=== PATIENT | female | born 1945 | race Caucasian/White ===

== ENCOUNTER → 2019-06-16 11:28 | Outpatient (BNVA) | payer MEDICARE, SELFPAY | PROVIDERS: Visit Provider Nurse Practitioner Family | DX: I10 Essential (primary) hypertension (principal); E11.59 Type 2 diabetes mellitus with other circulatory complications; E78.5 Hyperlipidemia, unspecified | CPT/HCPCS: 80053; 82044; 83036 ==

== ENCOUNTER 2019-06-23 17:35 | Inpatient (IN) | payer MEDICARE, SELFPAY ==
[2019-06-23] VITALS (9 sets, daily range): BP systolic 90–130; BP diastolic 60–73; PULSE 91–121; RESP 16–18; TEMP 36.7–37; O2SAT 91–94; BMI 17.9
--- NOTE | 2019-06-23 17:44 | W.ED.NAVMDI ---
Documented by User: Donavan Palmer DO 06/28/19 10:37 HPI - Nausea/Vomiting/Diarrhea General: Chief complaint: Nausea/Vomiting/Diarrhea Stated complaint: N/V, fever, low O2 Time Seen by Provider: 06/23/19 17:40 History of Present Illness: HPI Narrative: 74-year-old female presents emergency room with complaints of nausea vomiting diarrhea. Denies hematochezia melena hematemesis or coffee-ground emesis. No fevers. She has had a little bit of cough which has been nonproductive. She has a history of COPD does not use oxygen she has moderately low O2 sat in the 90 to 91% range. Associated nausea: Yes Associated symtoms: Reports nausea; Denies bloating, chest pain, dysuria, fatigue or malaise Review of Systems Const: Denies: fever, chills, body aches, change in appetite, fatigue or malaise ENMT: Reports: nasal discharge and nasal congestion; Denies: throat pain or ear pain Card: Reports: shortness of breath on exertion; Denies: chest pain, edema or shortness of breath when lying down Resp: Reports: shortness of breath and non-productive cough; Denies: productive cough GI: Reports: nausea, vomiting and diarrhea; Denies: abdominal pain, vomiting blood, coffee grounds in vomit, constipation, bloating, blood in stool or black tarry stool : Denies: flank pain, difficulty urinating, painful urination, urinary frequency or urinary urgency Skin/Breast: Denies: rash or itching [facility] ED PFSH: Medical History (Updated 06/25/19 @ 05:51 by Johanna Yao MD) CAD (coronary artery disease) 2 RCA stents Celiac artery stenosis With chronic occlusion as well as 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 Had biopsy, ? cancer, but not confirmed on second biopsy. Last episode 2000. HTN (hypertension) Hyperlipemia Peripheral vascular disease Iliac stent on the left in 2012. Patient reports decreasing BRITTA in the right lower extremity on most recent testing done in April 2019. 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 Family History (Updated 06/24/19 @ 07:59 by Johanna Yao MD) Brother Peripheral vascular disease Double amputee Mother Peripheral vascular disease Double amputee Social History (Updated 06/24/19 @ 07:59 by Johanna Yao MD) Smoking and tobacco status: current every day smoker Second hand smoke exposure: Yes Lives independently: No Household members: family Marital status: / Physical Exam Const: COMMON NORMALS: no apparent distress GENERAL APPEARANCE: cooperative and comfortable ORIENTATION/CONSCIOUSNESS: Yes awake, Yes oriented to person, Yes oriented to place and Yes oriented to time HENMT: COMMON NORMALS: normocephalic, head/scalp atraumatic, hearing grossly normal bilaterally, external ears normal, EAC's normal, TM's normal bilaterally, nasal mucous membranes and turbinates normal, moist oral mucous membranes and oropharynx normal HEAD & SCALP: normocephalic and atraumatic NOSE: nasal mucous membranes and turbinates normal EXTERNAL EAR: Yes external ears normal EXTERNAL AUDITORY CANAL: EAC's normal TYMPANIC MEMBRANE: TM's normal bilaterally Eye: COMMON NORMALS: PERRL, EOMs intact bilaterally, conjunctivae normal and no scleral icterus CONJUNCTIVA: Yes conjunctivae normal PUPIL: Yes PERRL Neck/C-Spine: COMMON NORMALS: full ROM, no lymphadenopathy, supple and no JVD Lymph: LYMPHATIC: no lymphadenopathy noted and no lymphedema noted Resp: COMMON NORMALS: normal respiratory effort, no retractions, no use of accessory muscles and clear to auscultation bilaterally AUSCULTATION: clear to auscultation bilaterally Cardio: COMMON NORMALS: no JVD, regular rate, regular rhythm and no murmurs RATE: regular rate RHYTHM: regular rhythm GI: COMMON NORMALS: soft to palpation and no hepatosplenomegaly AUSCULTATION: Yes normoactive bowel sounds PALPATION: Yes soft, No tender, No guarding and Yes no hepatosplenomegaly Extremity: COMMON NORMALS: normal to inspection, normal capillary refill, no clubbing, cyanosis or edema, no calf tenderness and no pedal edema Neuro: SENSORIUM/ORIENTATION: Yes oriented to person, Yes oriented to place and Yes oriented to time Skin: COMMON NORMALS: no rashes or lesions noted GENERAL SKIN EXAM: no rashes or lesions noted Course ED course: Care turned over to Dr. Robertson at change of shift. Vital Signs: Vital signs: Vital Signs Temperature 96.5 F L 06/25/19 03:36 Pulse Rate 69 06/25/19 05:15 Respiratory Rate 18 06/25/19 07:43 Blood Pressure 110/0 06/25/19 05:26 Pulse Oximetry 92 06/25/19 03:42 MDM - Nausea/Vomiting/Diarrhea Lab Data: Labs: Lab Results 06/23/19 06/23/19 06/23/19 Range/Units 00:23 17:53 17:53 WBC 9.0 (4.0-10.0) 10^3/ uL RBC 3.88 L (4.1-5.3) 10^6/u L Hgb 12.5 (11.5-15.3) g/dL Hct 37.6 (37.0-47.0) % MCV 96.9 (81-99) fL MCH 32.2 (28.0-34.0) pg MCHC 33.2 (30.0-36.0) g/dL RDW 12.6 (12.1-15.1) % Plt Count 257 (130-400) 10^3/c mm MPV 10.6 H (7.4-10.4) fL Neut % (Auto) 89.4 % Lymph % (Auto) 6.7 % [place] % (Auto) 2.8 % Eos % (Auto) 0.0 % Baso % (Auto) 0.3 % Neut # (Auto) 8.0 H (1.8-7.7) 10^3/u L Lymph # (Auto) 0.6 L (0.8-4.8) 10^3/u L [place] # (Auto) 0.3 (0.2-0.9) 10^3/u L Eos # (Auto) 0.0 (0.0-0.8) 10^3/u L Baso # (Auto) 0.0 (0.0-0.1) 10^3/u L Nucleated RBC % (a uto) 0 % Nucleated RBCs # 0.0 /100WBC Specimen Type Sample Site ABG pH (7.35-7.45) ABG pCO2 (35-45) mmHg ABG pO2 (80.0-100.0) mmH g ABG HCO3 (22-26) mmol/L ABG O2 Saturation ABG Base Excess (-2.0-2.0) mmol/ L Ben Test A-a O2 Gradient (5-10) mmHg Hematocrit (37-47) % Hgb O2 Saturation (95-100) % Carboxyhemoglobin (0.4-20.1) %THgb Methemoglobin (0.4-1.5) % Total Hemoglobin (12-16) g/dL Ionized Calcium (1.1-1.4) mmol/L O2 Delivery Device O2 Liters/Min % FiO2 % Optical Engineering Manager ID Sodium 130 L (136-145) mmol/L Potassium 4.7 (3.5-5.1) mmol/L Chloride 94 L (98-107) mmol/L Carbon Dioxide 20 L (22-29) mmol/L Anion Gap 20.7 H (5-19) BUN 27 H (8-23) mg/dL Creatinine 1.4 H (0.5-0.9) mg/dL Glucose 161 H (65-115) mg/dL Lactic Acid (0.5-2.2) mmol/L Lactic Acid (Sepsi s) 4.3 H* (0.5-2.2) mmol/L Lactate Calcium 9.6 (8.5-10.5) mg/dL Total Bilirubin 0.6 (0.15-1.2) mg/dL AST 18 (0-32) U/L ALT 13 (0-33) U/L Alkaline Phosphata se 80 (35-105) IU/L Troponin T Baselin e (0-10) ng/mL Troponin T 120 Min solomon (0-10) ng/mL Delta Troponin T (0-10) ABS# NT-Pro-B Natriuret Pep (0-450) pg/mL Total Protein 6.7 (6.6-8.7) g/dL Albumin 3.1 L (3.5-5.2) g/dL Globulin 3.6 (1.3-4.6) g/dL Lipase 4 L (13-60) U/L 06/23/19 06/23/19 06/23/19 Range/Units 17:53 17:53 18:00 WBC (4.0-10.0) 10^3/ uL RBC (4.1-5.3) 10^6/u L Hgb (11.5-15.3) g/dL Hct (37.0-47.0) % MCV (81-99) fL MCH (28.0-34.0) pg MCHC (30.0-36.0) g/dL RDW (12.1-15.1) % Plt Count (130-400) 10^3/c mm MPV (7.4-10.4) fL Neut % (Auto) % Lymph % (Auto) % [place] % (Auto) % Eos % (Auto) % Baso % (Auto) % Neut # (Auto) (1.8-7.7) 10^3/u L Lymph # (Auto) (0.8-4.8) 10^3/u L [place] # (Auto) (0.2-0.9) 10^3/u L Eos # (Auto) (0.0-0.8) 10^3/u L Baso # (Auto) (0.0-0.1) 10^3/u L Nucleated RBC % (a uto) % Nucleated RBCs # /100WBC Specimen Type Arterial Sample Site Brachial, right ABG pH 7.48 H (7.35-7.45) ABG pCO2 25.9 L (35-45) mmHg ABG pO2 64.5 L (80.0-100.0) mmH g ABG HCO3 19.3 L (22-26) mmol/L ABG O2 Saturation 95.0 ABG Base Excess -2.8 L (-2.0-2.0) mmol/ L Ben Test N/a A-a O2 Gradient 127.6 H (5-10) mmHg Hematocrit 40.1 (37-47) % Hgb O2 Saturation 92.5 L (95-100) % Carboxyhemoglobin 1.8 (0.4-20.1) %THgb Methemoglobin 0.8 (0.4-1.5) % Total Hemoglobin 13.1 (12-16) g/dL Ionized Calcium 1.2 (1.1-1.4) mmol/L O2 Delivery Device Nc O2 Liters/Min 3.0 % FiO2 32.0 % Optical Engineering Manager ID ed Sodium 131.0 (136-145) mmol/L Potassium 4.2 (3.5-5.1) mmol/L Chloride (98-107) mmol/L Carbon Dioxide (22-29) mmol/L Anion Gap (5-19) BUN (8-23) mg/dL Creatinine (0.5-0.9) mg/dL Glucose 162.0 H (65-115) mg/dL Lactic Acid (0.5-2.2) mmol/L Lactic Acid (Sepsi s) (0.5-2.2) mmol/L Lactate Calcium (8.5-10.5) mg/dL Total Bilirubin (0.15-1.2) mg/dL AST (0-32) U/L ALT (0-33) U/L Alkaline Phosphata se (35-105) IU/L Troponin T Baselin e 18 H (0-10) ng/mL Troponin T 120 Min solomon (0-10) ng/mL Delta Troponin T (0-10) ABS# NT-Pro-B Natriuret Pep 5925 H (0-450) pg/mL Total Protein (6.6-8.7) g/dL Albumin (3.5-5.2) g/dL Globulin (1.3-4.6) g/dL Lipase (13-60) U/L 06/23/19 06/23/19 06/23/19 Range/Units 18:05 18:05 19:50 WBC (4.0-10.0) 10^3/ uL RBC (4.1-5.3) 10^6/u L Hgb (11.5-15.3) g/dL Hct (37.0-47.0) % MCV (81-99) fL MCH (28.0-34.0) pg MCHC (30.0-36.0) g/dL RDW (12.1-15.1) % Plt Count (130-400) 10^3/c mm MPV (7.4-10.4) fL Neut % (Auto) % Lymph % (Auto) % [place] % (Auto) % Eos % (Auto) % Baso % (Auto) % Neut # (Auto) (1.8-7.7) 10^3/u L Lymph # (Auto) (0.8-4.8) 10^3/u L [place] # (Auto) (0.2-0.9) 10^3/u L Eos # (Auto) (0.0-0.8) 10^3/u L Baso # (Auto) (0.0-0.1) 10^3/u L Nucleated RBC % (a uto) % Nucleated RBCs # /100WBC Specimen Type Sample Site ABG pH (7.35-7.45) ABG pCO2 (35-45) mmHg ABG pO2 (80.0-100.0) mmH g ABG HCO3 (22-26) mmol/L ABG O2 Saturation ABG Base Excess (-2.0-2.0) mmol/ L Ben Test A-a O2 Gradient (5-10) mmHg Hematocrit (37-47) % Hgb O2 Saturation (95-100) % Carboxyhemoglobin (0.4-20.1) %THgb Methemoglobin (0.4-1.5) % Total Hemoglobin (12-16) g/dL Ionized Calcium (1.1-1.4) mmol/L O2 Delivery Device O2 Liters/Min % FiO2 % Optical Engineering Manager ID Sodium (136-145) mmol/L Potassium (3.5-5.1) mmol/L Chloride (98-107) mmol/L Carbon Dioxide (22-29) mmol/L Anion Gap (5-19) BUN (8-23) mg/dL Creatinine (0.5-0.9) mg/dL Glucose (65-115) mg/dL Lactic Acid 3.5 H (0.5-2.2) mmol/L Lactic Acid (Sepsi s) (0.5-2.2) mmol/L Lactate Cancelled Calcium (8.5-10.5) mg/dL Total Bilirubin (0.15-1.2) mg/dL AST (0-32) U/L ALT (0-33) U/L Alkaline Phosphata se (35-105) IU/L Troponin T Baselin e (0-10) ng/mL Troponin T 120 Min solomon 18.58 H (0-10) ng/mL Delta Troponin T 0.58 (0-10) ABS# NT-Pro-B Natriuret Pep (0-450) pg/mL Total Protein (6.6-8.7) g/dL Albumin (3.5-5.2) g/dL Globulin (1.3-4.6) g/dL Lipase (13-60) U/L Discharge Plan Discharge Patient Disposition: Admitted As Inpatient Admit Provider: Johanna Yao Condition: Stable Discharge Date/Time: 06/23/19 23:47 Sign Out Sign Out Data: Patient Sign Out occurred on 06/23/19 at 18:29. Patient's care was discussed, and care was transferred from Donavan Palmer DO to Ivet Araujo. 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 Had biopsy, ? cancer, but not confirmed on second biopsy. Last episode 2000. HTN (hypertension) Hyperlipemia Peripheral vascular disease Iliac stent on the left in 2012. Patient reports decreasing BRITTA in the right lower extremity on most recent testing done in April 2019. Surgical History (Updated 06/24/19 @ 07:58 by Johanna Yao MD) History of carpal tunnel release Right History of heart artery stent RCA stent x2 in 1999 History of right above knee amputation Due to severe vascular disease Family History (Updated 06/24/19 @ 07:59 by Johanna Yao MD) Brother Peripheral vascular disease Double amputee Mother Peripheral vascular disease Double amputee Social History (Updated 06/24/19 @ 07:59 by Johanna Yao MD) Smoking and tobacco status: current every day smoker Second hand smoke exposure: Yes Lives independently: No Household members: family Marital status: / Course Vital Signs: Vital signs: Vital Signs Temperature 96.5 F L 06/25/19 03:36 Pulse Rate 69 06/25/19 05:15 Respiratory Rate 18 06/25/19 07:43 Blood Pressure 110/0 06/25/19 05:26 Pulse Oximetry 92 06/25/19 03:42 MDM - Nausea/Vomiting/Diarrhea MDM Narrative: Medical decision making narrative: 1800 -patient turned over to me from Dr. Palmer at change of shift. He reports the patient has had nausea and vomiting and diarrhea. No fever. She fell at home today but denied any injuries. Is concerned about dehydration and wanted me to follow-up on labs. Per my history from the patient she states that she has had a round of a GI bug but she feels like she has recovered. She went today to establish with a new primary care provider and was noted to be dyspneic on exertion. She had her pulse ox checked at the office and it was found to be in the low 70s. She does have a history of COPD but does not wear oxygen. She does have a cough productive of white phlegm. Other than that she denies any fever, chest pain or has any other complaints. Admission -the patient has pneumonia likely causing her hypoxia. I reviewed the case in full with Dr. Fang and she agrees with going ahead with a CTA to rule out PEs with pulmonary infarction secondary to the wedge-shaped formation on chest x-ray. Patient is in no distress but is requiring supplemental O2. We will go and cover her empirically with antibiotics and likely admit her to the hospital. Lab Data: Attestation: I reviewed the patient's lab results. Labs: Lab Results 06/23/19 06/23/19 06/23/19 Range/Units 00:23 17:53 17:53 WBC 9.0 (4.0-10.0) 10^3/ uL RBC 3.88 L (4.1-5.3) 10^6/u L Hgb 12.5 (11.5-15.3) g/dL Hct 37.6 (37.0-47.0) % MCV 96.9 (81-99) fL MCH 32.2 (28.0-34.0) pg MCHC 33.2 (30.0-36.0) g/dL RDW 12.6 (12.1-15.1) % Plt Count 257 (130-400) 10^3/c mm MPV 10.6 H (7.4-10.4) fL Neut % (Auto) 89.4 % Lymph % (Auto) 6.7 % [place] % (Auto) 2.8 % Eos % (Auto) 0.0 % Baso % (Auto) 0.3 % Neut # (Auto) 8.0 H (1.8-7.7) 10^3/u L Lymph # (Auto) 0.6 L (0.8-4.8) 10^3/u L [place] # (Auto) 0.3 (0.2-0.9) 10^3/u L Eos # (Auto) 0.0 (0.0-0.8) 10^3/u L Baso # (Auto) 0.0 (0.0-0.1) 10^3/u L Nucleated RBC % (a uto) 0 % Nucleated RBCs # 0.0 /100WBC Specimen Type Sample Site ABG pH (7.35-7.45) ABG pCO2 (35-45) mmHg ABG pO2 (80.0-100.0) mmH g ABG HCO3 (22-26) mmol/L ABG O2 Saturation ABG Base Excess (-2.0-2.0) mmol/ L Ben Test A-a O2 Gradient (5-10) mmHg Hematocrit (37-47) % Hgb O2 Saturation (95-100) % Carboxyhemoglobin (0.4-20.1) %THgb Methemoglobin (0.4-1.5) % Total Hemoglobin (12-16) g/dL Ionized Calcium (1.1-1.4) mmol/L O2 Delivery Device O2 Liters/Min % FiO2 % Optical Engineering Manager ID Sodium 130 L (136-145) mmol/L Potassium 4.7 (3.5-5.1) mmol/L Chloride 94 L (98-107) mmol/L Carbon Dioxide 20 L (22-29) mmol/L Anion Gap 20.7 H (5-19) BUN 27 H (8-23) mg/dL Creatinine 1.4 H (0.5-0.9) mg/dL Glucose 161 H (65-115) mg/dL Lactic Acid (0.5-2.2) mmol/L Lactic Acid (Sepsi s) 4.3 H* (0.5-2.2) mmol/L Lactate Calcium 9.6 (8.5-10.5) mg/dL Total Bilirubin 0.6 (0.15-1.2) mg/dL AST 18 (0-32) U/L ALT 13 (0-33) U/L Alkaline Phosphata se 80 (35-105) IU/L Troponin T Baselin e (0-10) ng/mL Troponin T 120 Min solomon (0-10) ng/mL Delta Troponin T (0-10) ABS# NT-Pro-B Natriuret Pep (0-450) pg/mL Total Protein 6.7 (6.6-8.7) g/dL Albumin 3.1 L (3.5-5.2) g/dL Globulin 3.6 (1.3-4.6) g/dL Lipase 4 L (13-60) U/L 06/23/19 06/23/19 06/23/19 Range/Units 17:53 17:53 18:00 WBC (4.0-10.0) 10^3/ uL RBC (4.1-5.3) 10^6/u L Hgb (11.5-15.3) g/dL Hct (37.0-47.0) % MCV (81-99) fL MCH (28.0-34.0) pg MCHC (30.0-36.0) g/dL RDW (12.1-15.1) % Plt Count (130-400) 10^3/c mm MPV (7.4-10.4) fL Neut % (Auto) % Lymph % (Auto) % [place] % (Auto) % Eos % (Auto) % Baso % (Auto) % Neut # (Auto) (1.8-7.7) 10^3/u L Lymph # (Auto) (0.8-4.8) 10^3/u L [place] # (Auto) (0.2-0.9) 10^3/u L Eos # (Auto) (0.0-0.8) 10^3/u L Baso # (Auto) (0.0-0.1) 10^3/u L Nucleated RBC % (a uto) % Nucleated RBCs # /100WBC Specimen Type Arterial Sample Site Brachial, right ABG pH 7.48 H (7.35-7.45) ABG pCO2 25.9 L (35-45) mmHg ABG pO2 64.5 L (80.0-100.0) mmH g ABG HCO3 19.3 L (22-26) mmol/L ABG O2 Saturation 95.0 ABG Base Excess -2.8 L (-2.0-2.0) mmol/ L Ben Test N/a A-a O2 Gradient 127.6 H (5-10) mmHg Hematocrit 40.1 (37-47) % Hgb O2 Saturation 92.5 L (95-100) % Carboxyhemoglobin 1.8 (0.4-20.1) %THgb Methemoglobin 0.8 (0.4-1.5) % Total Hemoglobin 13.1 (12-16) g/dL Ionized Calcium 1.2 (1.1-1.4) mmol/L O2 Delivery Device Nc O2 Liters/Min 3.0 % FiO2 32.0 % Optical Engineering Manager ID ed Sodium 131.0 (136-145) mmol/L Potassium 4.2 (3.5-5.1) mmol/L Chloride (98-107) mmol/L Carbon Dioxide (22-29) mmol/L Anion Gap (5-19) BUN (8-23) mg/dL Creatinine (0.5-0.9) mg/dL Glucose 162.0 H (65-115) mg/dL Lactic Acid (0.5-2.2) mmol/L Lactic Acid (Sepsi s) (0.5-2.2) mmol/L Lactate Calcium (8.5-10.5) mg/dL Total Bilirubin (0.15-1.2) mg/dL AST (0-32) U/L ALT (0-33) U/L Alkaline Phosphata se (35-105) IU/L Troponin T Baselin e 18 H (0-10) ng/mL Troponin T 120 Min solomon (0-10) ng/mL Delta Troponin T (0-10) ABS# NT-Pro-B Natriuret Pep 5925 H (0-450) pg/mL Total Protein (6.6-8.7) g/dL Albumin (3.5-5.2) g/dL Globulin (1.3-4.6) g/dL Lipase (13-60) U/L 06/23/19 06/23/19 06/23/19 Range/Units 18:05 18:05 19:50 WBC (4.0-10.0) 10^3/ uL RBC (4.1-5.3) 10^6/u L Hgb (11.5-15.3) g/dL Hct (37.0-47.0) % MCV (81-99) fL MCH (28.0-34.0) pg MCHC (30.0-36.0) g/dL RDW (12.1-15.1) % Plt Count (130-400) 10^3/c mm MPV (7.4-10.4) fL Neut % (Auto) % Lymph % (Auto) % [place] % (Auto) % Eos % (Auto) % Baso % (Auto) % Neut # (Auto) (1.8-7.7) 10^3/u L Lymph # (Auto) (0.8-4.8) 10^3/u L [place] # (Auto) (0.2-0.9) 10^3/u L Eos # (Auto) (0.0-0.8) 10^3/u L Baso # (Auto) (0.0-0.1) 10^3/u L Nucleated RBC % (a uto) % Nucleated RBCs # /100WBC Specimen Type Sample Site ABG pH (7.35-7.45) ABG pCO2 (35-45) mmHg ABG pO2 (80.0-100.0) mmH g ABG HCO3 (22-26) mmol/L ABG O2 Saturation ABG Base Excess (-2.0-2.0) mmol/ L Ben Test A-a O2 Gradient (5-10) mmHg Hematocrit (37-47) % Hgb O2 Saturation (95-100) % Carboxyhemoglobin (0.4-20.1) %THgb Methemoglobin (0.4-1.5) % Total Hemoglobin (12-16) g/dL Ionized Calcium (1.1-1.4) mmol/L O2 Delivery Device O2 Liters/Min % FiO2 % Optical Engineering Manager ID Sodium (136-145) mmol/L Potassium (3.5-5.1) mmol/L Chloride (98-107) mmol/L Carbon Dioxide (22-29) mmol/L Anion Gap (5-19) BUN (8-23) mg/dL Creatinine (0.5-0.9) mg/dL Glucose (65-115) mg/dL Lactic Acid 3.5 H (0.5-2.2) mmol/L Lactic Acid (Sepsi s) (0.5-2.2) mmol/L Lactate Cancelled Calcium (8.5-10.5) mg/dL Total Bilirubin (0.15-1.2) mg/dL AST (0-32) U/L ALT (0-33) U/L Alkaline Phosphata se (35-105) IU/L Troponin T Baselin e (0-10) ng/mL Troponin T 120 Min solomon 18.58 H (0-10) ng/mL Delta Troponin T 0.58 (0-10) ABS# NT-Pro-B Natriuret Pep (0-450) pg/mL Total Protein (6.6-8.7) g/dL Albumin (3.5-5.2) g/dL Globulin (1.3-4.6) g/dL Lipase (13-60) U/L Imaging Data^: CXR: My impression: COPD changes with large left-sided wedge-shaped infiltrate on the left. Cardiomegaly. EKG Data^: EKG 1: Attestation: I personally reviewed and interpreted this EKG as follows: EKG interpretation date: 06/23/19 EKG interpretation time: 19:02 Interpretation: Normal sinus rhythm at 87 beats a minute, normal intervals, no blocks, T wave inversions in V2 otherwise no acute ST or T wave changes. No old for comparison. Discharge Plan Discharge Patient Disposition: Admitted As Inpatient Admit Provider: Johanna Yao Condition: Stable Discharge Date/Time: 06/23/19 23:47 Sign Out Sign Out Data: Patient Sign Out occurred on 06/23/19 at 18:29. Patient's care was discussed, and care was transferred from Donavan Palmer DO to Ivet Araujo. Sign Out Comment: Labs pending Last updated by Donavan Palmer DO at 06/23/19 18:13 Coding Level of Care Code ED Learning Support Services Director for [facility]
--- NOTE | 2019-06-23 17:51 | XRR_ITS ---
PROCEDURE INFORMATION: Exam: XR Chest, 1 View Exam date and time: 06/23/2019 6:48 PM Age: 74 years old Clinical indication: Cough and dyspnea; Additional info: Dyspnea/cough TECHNIQUE: Imaging protocol: XR of the chest Views: Single frontal portable upright view. COMPARISON: No relevant prior studies available. FINDINGS: Lungs: Dense consolidation mid and lateral lower left lung. The pulmonary vasculature is normal. The pulmonary vasculature is congested. Pleural space: No pleural effusion. No pneumothorax. Heart/Mediastinum: The heart is normal in size and contour. Diaphragm: The left hemidiaphragm is moderately elevated. Bones/joints: Unremarkable. Soft tissues: Left upper chest wall surgical clips. Other findings: Right subdiaphragmatic colonic interposition is present, a normal variant. XR/XR chest 1V portable [id number] IMPRESSION: 1. Dense consolidation mid and lateral lower left lung. Pneumonitis is difficult to exclude. Clinical correlation is recommended. 2. Pulmonary vascular congestion.
[2019-06-23 18:02] LABS: Basophils % 0.3 %; Hematocrit 37.6 % (37.0-47.0); Hemoglobin 12.5 g/dL (11.5-15.3); Lymphocytes # 0.6 10^3/uL (0.8-4.8); Lymphocytes % 6.7 %; Mean Corpuscular HGB Conc 33.2 g/dL (30.0-36.0); Mean Corpuscular Hemoglobin 32.2 pg (28.0-34.0); Mean Corpuscular Volume 96.9 fL (81-99); Mean Platelet Volume 10.6 fL (7.4-10.4); Monocytes # 0.3 10^3/uL (0.2-0.9); Monocytes % 2.8 %; Neutrophils % 89.4 %; Nucleated Red Blood Cells % 0 %; Platelet Count 257 10^3/cmm (130-400); Red Blood Count 3.88 10^6/uL (4.1-5.3); Red Cell Distribution Width 12.6 % (12.1-15.1)
[2019-06-23] MEDS: ondansetron 2 mg/ML SDV 2 mL 4 MG IVP ×2 (18:08→19:58)
[2019-06-23] MEDS: sodium chloride 0.9% 1,000 ML 999 ML IV (18:09)
[2019-06-23 18:13] LABS: ABG PCO2 25.9 mmHg (35-45); ABG PH Result 7.48 (7.35-7.45); Alveolar-Arterial Oxygen Gradi 127.6 mmHg (5-10); Arterial Blood Gas Hematocrit 40.1 % (37-47); Base Excess ABG -2.8 mmol/L (-2.0-2.0); Blood Gas Sample Site Brachial, right; Blood Gas Sample Type Arterial; Carboxyhemoglobin 1.8 %THgb (0.4-20.1); HCO3 ABG 19.3 mmol/L (22-26); HGB O2 Sat 92.5 % (95-100); Ionized Calcium Level - ABG 1.2 mmol/L (1.1-1.4); Methemoglobin 0.8 % (0.4-1.5); Oxygen Device NC; PO2 ABG 64.5 mmHg (80.0-100.0); Potassium Level - ABG 4.2 mmol/L (3.5-5.0); Total Hemoglobin 13.1 g/dL (12-16)
[2019-06-23 18:18] LABS: Alanine Aminotransferase 13 U/L (0-33); Albumin Level 3.1 g/dL (3.5-5.2); Alkaline Phosphatase 80 IU/L (35-105); Anion Gap 20.7 (5-19); Aspartate Amino Transferase 18 U/L (0-32); Blood Urea Nitrogen 27 mg/dL (8-23); Calcium 9.6 mg/dL (8.5-10.5); Carbon Dioxide 20 mmol/L (22-29); Chloride 94 mmol/L (98-107); Globulin 3.6 g/dL (1.3-4.6); Glucose 161 mg/dL (65-115); Lipase 4 U/L (13-60); Potassium 4.7 mmol/L (3.5-5.1); Sodium 130 mmol/L (136-145); Total Bilirubin 0.6 mg/dL (0.15-1.2); Total Protein 6.7 g/dL (6.6-8.7)
[2019-06-23 18:31] LABS: Slide Review Slide Review Perform
--- NOTE | 2019-06-23 18:32 | ECG_ITS ---
Measurements Intervals [place] Rate: 86 P: 72 OK: 169 QRS: 20 QRSD: 88 T: 68 QT: 358 QTc: [address] DEPRESSION [0.025+ mV ST DEPRESSION] No previous ECG available for comparison Electronically Signed On 06-23-2019 21:19:42 [employer] by Ashley Latham M.D. [email or web address]
[2019-06-23 19:08] LABS: Troponin(5th) Baseline 18 ng/mL (0-10)
--- NOTE | 2019-06-23 19:10 | PC.NURSE ---
report received from COURTNEY Shook and care transferred to COURTNEY Aviles
[2019-06-23 19:16] LABS: NT Pro B Type Natriuretic Pept 5925 pg/mL (0-450)
[2019-06-23] MEDS: ipratropium-albuterol 3 mL Neb 9 ML INHALATION (19:28)
--- NOTE | 2019-06-23 19:40 | CTR_ITS ---
PROCEDURE INFORMATION: Exam: CT Angiography Chest With Contrast Exam date and time: 06/23/2019 7:59 PM Age: 74 years old Clinical indication: Dyspnea; Prior surgery; Surgery type: Stent TECHNIQUE: Imaging protocol: Computed tomographic angiography of the chest with intravenous contrast. 3D rendering: MIP and/or 3D reconstructed images were created by the technologist. Total DLP: 380.63 mGy-cm Radiation optimization: All CT scans at this facility use at least one of these dose optimization techniques: automated exposure control; mA and/or kV adjustment per patient size (includes targeted exams where dose is matched to clinical indication); or iterative reconstruction. Contrast material: VISI; Contrast volume: 75 ml; Contrast route: IV; COMPARISON: CR XR chest 1V portable [id number] 06/23/2019 6:37 PM FINDINGS: Pulmonary arteries: Overall exam quality is good for evaluating the pulmonary arteries. There are no intraluminal filling defects to indicate pulmonary embolism. 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 Aorta: Unremarkable. No aortic aneurysm. No aortic dissection. Other arteries: There is moderate supra celiac abdominal aortic stenosis due to calcified plaque producing 50-60% narrowing based on minimum diameter criteria. The celiac artery origin is occluded but with reconstitution. Lungs: Dense consolidation is centered in the superior segment of the left lower lobe but also extends into an enlarged lingular segment. Scattered very small inflammatory micronodules in the upper lobes. Scattered air bronchograms are noted within this consolidation. There is no visible mass or necrosis. Subtle centrilobular emphysema in the upper lobes. Pleural space: No pleural effusion. Heart: There are numerous calcified plaques in the coronary arteries. Lymph nodes: Unremarkable. No enlarged lymph nodes. Bones/joints: Unremarkable. No acute fracture. Soft tissues: Unremarkable. Other findings: The origin of the SMA is narrowed approximately 50%. More distally the vessel is patent. The CT/CT angio chest PE protcl [id number] IMPRESSION: 1. No pulmonary embolism. 2. Dense consolidation in the left lower lobe and lingula. No effusion or bronchial obstruction. 3. Supra celiac moderate aortic stenosis due to chronic calcified plaque. The celiac artery is also chronically occluded at its origin but with reconstitution. 4. Other chronic and incidental findings as described. Radiation Dose CTDIVOL = (mGy): DLP = 380.63 (mGy-cm)
[2019-06-23] MEDS: sodium chloride 0.9% 1,000 ML 100 ML IV (19:58)
[2019-06-23 19:59] LABS: Lactic Sepsis W/Reflex 3.5 mmol/L (0.5-2.2)
[2019-06-23] MEDS: piperacillin-tazobactam 3.375 GM in sodium chloride 0.9% (plus) 50 ML IV (19:59)
[2019-06-23 20:10] LABS: Troponin 5 2HR 18.58 ng/mL (0-10); Troponin 5 2HR Delta 0.58 ABS# (0-10)
--- NOTE | 2019-06-23 20:12 | PC.NURSE ---
pt to ct
--- NOTE | 2019-06-23 20:17 | P.HP_ITS ---
Providers/Chief Complaint Admitting Physician: Johanna Yao MD Primary Care Provider: Renetta Robertson Chief Complaint: Hypoxemia;possible pneumonia History of Present Illness Jacy Navarro is a 74 year old female who presented to the emergency room after being found to have significant hypoxemia at primary care provider's office. Patient moved to this area from [place] on May 30 to live with her daughter. She establish primary care with Renetta Robertson on May 29. She had a scheduled follow-up today. Multiple members of the household have been sick with a viral illness consisting of nausea, vomiting, diarrhea, upper respiratory symptoms and general malaise. Nobody is tested positive for influenza. Patient developed the same kind of symptoms a week or so ago. She has been generally weak and tired and dealing with queasiness and diarrhea multiple times a day. Yesterday she seemed worse. She had an appointment to get her hair done but did not feel like going. By the afternoon her daughter describes her as being lethargic. She had a fall in the bathroom in which she landed on her left side. She complains of some pain in the left rib cage area as well as with deep inspiration since then but no other injuries. Her daughter stayed with her through the night nearby last night because the patient was so weak. She seemed like she might be a little bit better this morning but then started becoming more disoriented, short of breath and quite ill-appearing. She did not want an ambulance to be called and instead kept her appointment with Patrizia Robertson's office today. She was quite ill-appearing on arrival there and was found to have hypoxemia with oxygen saturations as low as 78% on room air. She does not normally wear oxygen. She has had a little bit of a cough productive primarily of a small amount of white-yellowish foam. Subjective fevers and shivering chills. She had some nasal congestion. Last episode of vomiting was this morning. Last episode of diarrhea was today as well. Incidentally she noted some blood on the toilet paper when she wiped today. She has had issues with hemorrhoids in the past and thought that is what was going on. She now has a sensation of needing to have a bowel movement but is not able to. In the emergency room she had a small amount of mucus mixed with blood noted in the bedside commode. On arrival here, with oxygen in place, initial saturations were only 91%. Blood pressures were 90-100 systolic. She has not had her usual medications today. Chest x-ray showed a wedge-shaped infiltrate and a CT scan of the chest showed a dense consolidation in the left. White count was normal but she did have slight elevation in lactic acid at 3.5. She has had sinus tachycardia in the emergency room. She was covered with antibiotics and is being admitted for further care. 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 Wakefield, cards, no issues. No chf, hx of angina no ntg 3 yrs. Htn, hld. Dr. Frazier kidney [facility], had kidney bx ~2009 Review of Systems Const: Reports: fever and chills; Denies: change in weight Eyes: Denies: change in vision ENMT: Reports: nasal congestion; Denies: throat pain Card: Reports: chest pain; Denies: palpitations or edema Resp: Reports: shortness of breath and productive cough GI: Reports: nausea, vomiting and diarrhea; Denies: abdominal pain, constipation or blood in stool : Denies: difficulty urinating or urinary frequency Skin/Breast: Denies: rash or sores Neuro: Reports: weakness in extremities; Denies: headache or numbness in extremities Valentín/Lymph: Denies: easy bruising or easy bleeding Medications/Allergies Home Medications Medication Instructions Recorded Confirmed Last Taken Type acetaminophen [Tylenol] 325 mg PO QID PRN 06/23/19 06/23/19 Unknown History albuterol sulfate [Ventolin HFA] 2 puff INHALATION QID PRN 06/23/19 06/23/19 06/22/19 History aspirin [Aspir-81] 162 mg PO DAILY 06/23/19 06/23/19 06/22/19 History cholecalciferol (vitamin D3) 25 mcg PO DAILY 06/23/19 06/23/19 06/23/19 History [Vitamin D3] diphenhydramine HCl [Sleep Aid 50 mg PO BEDTIME 06/23/19 06/23/19 06/22/19 History (diphenhydramine)] loperamide [Imodium A-D] 2 mg PO Q4H PRN 06/23/19 06/23/19 06/23/19 History Allergies Allergy/AdvReac Type Severity Reaction Status Date / Time lorazepam [From Ativan] Allergy Unknown Verified 06/23/19 15:16 meperidine [From Demerol] Allergy Unknown Verified 06/23/19 15:16 quinine [From Quine] Allergy Unknown Verified 06/23/19 15:16 zinc Allergy Unknown Verified 06/23/19 15:16 Additional Medication Information Additional Medication Information: Other meds: amlodipine 10 mg PO DAILY 06/16/19 atorvastatin 40 mg PO DAILY 06/16/19 isosorbide mononitrate 30 mg PO DAILY #90 tab 06/16/19 lisinopril 20 mg PO BID #180 tab 06/16/19 metformin 500 mg PO BID 06/16/19 metoprolol tartrate 25 mg PO .COMPLEX #270 tab 06/16/19 PFSH Acute PFSH: Medical History (Updated 06/24/19 @ 08:07 by Johanna Yao MD) CAD (coronary artery disease) 2 RCA stents Celiac artery stenosis With chronic occlusion as well as moderate supraceliac aortic stenosis due to chronic plaque Chronic kidney disease, stage II (mild) Has followed with a sausage smoker since developed micro-proteinuria COPD (chronic obstructive pulmonary disease) DM type 2 causing vascular disease History of pancreatitis Unclear etiology, around time of AKA. Had biopsy, ? cancer, but not c onfirmed on second biopsy. Last episode 2000. HTN (hypertension) Hyperlipemia Peripheral vascular disease Iliac stent on the left in 2012. Patient reports decreasing ISSAC in the right lower extremity on most recent testing done in April 2019. 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 Family History (Updated 06/24/19 @ 07:59 by Johanna Yao MD) Brother Peripheral vascular disease Double amputee Mother Peripheral vascular disease Double amputee Social History (Updated 06/24/19 @ 07:59 by Johanna Yao MD) Smoking and tobacco status: current every day smoker Second hand smoke exposure: Yes Lives independently: No Household members: family Marital status: / Female Reproductive History: : 3 Para: 3 Vitals/I&O/Wt Last Vital Signs Temp 98.0 F 06/23/19 17:38 Pulse 102 H 06/23/19 20:01 Resp 17 06/23/19 20:01 BP 119/69 06/23/19 20:01 Pulse Ox 93 06/23/19 20:01 06/23/19 06/23/19 06/23/19 06:59 14:59 22:59 Intake Total 1000 / 1000 Balance 1000 / 1000 Weight last 48 hrs Weight 41.73 kg Physical Exam Const: COMMON NORMALS: oriented x3 and alert HENMT: COMMON NORMALS: normocephalic and head/scalp atraumatic Eye: COMMON NORMALS: PERRL and EOMs intact bilaterally Neck/C-Spine: COMMON NORMALS: supple Lymph: LYMPHATIC: no lymphadenopathy noted Resp: EFFORT & INSPECTION: Yes able to speak in complete sentences and No uses accessory muscles AUSCULTATION: wheezes expiratory wheezes (Scattered) and diminished lung sounds on the left in the lower lung campuzano Cardio: COMMON NORMALS: regular rate, regular rhythm and no murmurs BRUITS: abdominal aortic bruit GI: COMMON NORMALS: soft to palpation and non-tender AUSCULTATION: Yes normoactive bowel sounds Extremity: NARRATIVE EXTREMITY EXAM: Right high AKA, diminished pulses left foot distally but good capillary refill Neuro: COMMON NORMALS: moves all extremities and no sensory deficits noted Psych: COMMON NORMALS: thought process normal and cooperative Skin: NARRATIVE SKIN EXAM: 2 sores on left lower extremity with scabs and appear old. Patient has bruising along the toes of her left foot which she states is chronic Data : 06/24/19 05:10 06/24/19 05:10 Micro: Microbiology 06/23/19 19:50 Blood Culture - Preliminary Blood SPECIMEN COLLECTED 06/23/19 18:05 Blood Culture - Preliminary Blood SPECIMEN COLLECTED CTA Chest: Radiologist's impression: FINDINGS: Pulmonary arteries: Overall exam quality is good for evaluating the pulmonary arteries. There are no intraluminal filling defects to indicate pulmonary embolism. 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 Aorta: Unremarkable. No aortic aneurysm. No aortic dissection. Other arteries: There is moderate supra celiac abdominal aortic stenosis due to calcified plaque producing 50-60% narrowing based on minimum diameter criteria. The celiac artery origin is occluded but with reconstitution. Lungs: Dense consolidation is centered in the superior segment of the left lower lobe but also extends into an enlarged lingular segment. Scattered very small inflammatory micronodules in the upper lobes. Scattered air bronchograms are noted within this consolidation. There is no visible mass or necrosis. Subtle centrilobular emphysema in the upper lobes. Pleural space: No pleural effusion. Heart: There are numerous calcified plaques in the coronary arteries. Lymph nodes: Unremarkable. No enlarged lymph nodes. Bones/joints: Unremarkable. No acute fracture. Soft tissues: Unremarkable. Other findings: The origin of the SMA is narrowed approximately 50%. More distally the vessel is patent. The CT/CT angio chest PE protcl [id number] IMPRESSION: 1. No pulmonary embolism. 2. Dense consolidation in the left lower lobe and lingula. No effusion or bronchial obstruction. 3. Supra celiac moderate aortic stenosis due to chronic calcified plaque. The celiac artery is also chronically occluded at its origin but with reconstitution. 4. Other chronic and incidental findings as described. A&P Assessment and plan (1) Left lower lobe consolidation: Patient with recent fall and has a wedge-shaped appearing infiltrate on chest x-ray. Potentially could be pulmonary contusion. Not producing much in the way of cough. Will treat as pneumonia. Status: Acute Code(s): J18.1 - Lobar pneumonia, unspecified organism (2) Bright red blood per rectum: History of hemorrhoidal bleeding. Passing a bit more blood than she is us ed to with this. Reports straining a lot with the diarrhea that she is been having. Status: Acute Code(s): K62.5 - Hemorrhage of anus and rectum (3) COPD (chronic obstructive pulmonary disease): Status: Chronic Qualifiers: COPD type: COPD with acute exacerbation Qualified Code(s): J44.1 - Chronic obstructive pulmonary disease with (acute) exacerbation Code(s): J44.9 - Chronic obstructive pulmonary disease, unspecified (4) Chronic kidney disease, stage II (mild): Suspected chronic diagnosis. Likely with acute worsening secondary to diarrhea.. Creatinine had been 1.0 a week ago. Status: Acute Code(s): N18.2 - Chronic kidney disease, stage 2 (mild) (5) DM type 2 causing vascular disease: [id number] Status: Chronic Code(s): E11.59 - Type 2 diabetes mellitus with other circulatory complications (6) CAD (coronary artery disease): Status: Chronic Qualifiers: Coronary Disease-Associated Artery/Lesion type: [place] artery [place] vs. transplanted heart: ag[place]ux heart Associated angina: without angina Qualified Code(s): I25.10 - Atherosclerotic heart disease of ag[place] coronary artery without angina pectoris Code(s): I25.10 - Atherosclerotic heart disease of [place] coronary artery without angina pectoris (7) HTN (hypertension): Status: Chronic Qualifiers: Hypertension type: essential hypertension Qualified Code(s): I10 - Ess ential (primary) hypertension Code(s): I10 - Essential (primary) hypertension (8) Hyperlipemia: Status: Chronic Qualifiers: Hyperlipidemia type: pure hypercholesterolemia Qualified Code(s): E78.00 - Pure hypercholesterolemia, unspecified Code(s): E78.5 - Hyperlipidemia, unspecified (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 Status: Acute Code(s): I77.4 - Celiac artery compression syndrome Additional A&P Information Inpatient admission Rocephin and azithromycin Breathing treatments Incentive spirometer given pain with deep inspiration in the left chest area where she fell recently Oxygen therapy, weaning as able Not chronically on oxygen Follow-up pending cultures Recommend follow-up chest x-ray to ensure resolution Stool studies GI prophylaxis Monitor hemoglobin for significant drop and need to evaluate rectal bleeding further Lactobacillus Hold home lisinopril and metformin secondary to renal function/contrast Monitor renal function for changes Hold amlodipine currently as blood pressures are on the softer him without her having taken her medicines today Continue home isosorbide and metoprolol We will need some assistance establishing specialist physicians in this area, particularly for peripheral vascular disease SCDs for DVT prophylaxis to the left lower extremity No pharmacological DVT prophylaxis secondary to bright red blood per rectum presently PT evaluation Supportive care otherwise Plans were discussed with patient and her family all of whom were given an opportunity to ask questions CODE STATUS was discussed and patient wishes to be full code currently that would not like anything for more than 10 to 15 minutes in terms of resuscitative efforts. Attestations Medical Necessity Statement*: Jacy Navarro's hospital stay will require greater than 2 midnights for evaluation and treatment of hypoxemia and left sided infiltrate. High risk of significant clinical decline without acute care management given need for oxygen, elevated lactic acid and other clinical findings combined with noted comorbid conditions. 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 transplanted heart: agdaagux heart Associated angina: without angina HTN (hypertension) I10 Hypertension type: essential hypertension Hyperlipemia E78.00 Hyperlipidemia type: pure hypercholesterolemia Celiac artery stenosis I77.4
[2019-06-23] MEDS: iodixanol 320 mg/mL 100mL Btl 75 ML IV (20:24)
--- NOTE | 2019-06-23 20:32 | ECG_ITS ---
Measurements Intervals [place] Rate: 110 P: 64 [place]: 168 QRS: 28 QRSD: 80 T: 60 QT: 329 QTc: 446 SINUS TACHYCARDIA Compared to ECG 06/23/2019 19:03:56 Sinus rhythm no longer present ST (T wave) deviation no longer present Electronically Signed On 06-24-2019 11:16:07 LICENSED HOME INSPECTOR by Ashley Latham M.D. [id number]
[2019-06-23 20:46] LABS: Influenza A by IFA Negative (Negative); Influenza B by IFA Negative (Negative)
--- NOTE | 2019-06-23 20:58 | PC.NURSE ---
Hospitalist in room
--- NOTE | 2019-06-23 21:35 | PC.NURSE ---
EKG done at 2130 and shown to ER doctor.
--- NOTE | 2019-06-23 21:36 | PC.NURSE ---
patient states she went to her appointment with her HCP today and her hands were white from the knuckles down and that her primary care put her on oxygen because her O2 sats would not stay up. Patient states she has been having nausea, vomiting, and diarrhea since yesterday. Patient states the diarrhea stopped today. Patient states that she went to wipe herself today and it was blood.
[2019-06-23 21:47] LABS: Reflex Lactate Order REFLEX LACTIC ORDERD
[2019-06-24] VITALS (18 sets, daily range): BP systolic 90–173; BP diastolic 44–85; PULSE 89–106; RESP 16–34; TEMP 36.3–37.2; O2SAT 90–96
--- NOTE | 2019-06-24 00:32 | ECG_ITS ---
Measurements Intervals [place] Rate: 98 P: 88 [place]: 165 QRS: 81 QRSD: 85 T: 89 QT: 345 QTc: 441 SINUS RHYTHM Compared to ECG 06/23/2019 19:03:56 ST (T wave) deviation no longer present Electronically Signed On 06-24-2019 11:15:39 PIPEFITTER by Ashley Latham M.D. [email or web address]
[2019-06-24 00:44] LABS: Troponin 5 6HR 20.26 ng/mL (0-10); Troponin 5 6HR Delta 2.26 ng/L (0-12)
[2019-06-24 00:47] LABS: Lactic Acid level (Lactate) 4.3 mmol/L (0.5-2.2)
[2019-06-24] MEDS: famotidine 20 mg Tablet PO ×2 (01:44→21:04)
[2019-06-24] MEDS: diphenhydrAMINE 50 mg Capsule PO ×2 (01:44→21:31)
[2019-06-24] MEDS: azithromycin 250 mg Tablet 500 MG PO (01:44)
[2019-06-24] MEDS: cefTRIAXone 1,000 MG in sodium chloride 0.9% (plus) 50 ML 100 MG IV (01:45)
[2019-06-24] MEDS: sodium chlor 0.9% + KCl 20 mEq 20 MEQ/1,000 ML BAG 75 MEQ IV ×2 (01:45→16:35)
[2019-06-24] MEDS: ipratropium-albuterol 3 mL Neb INHALATION ×4 (03:45→22:00)
[2019-06-24 05:40] LABS: Basophils % 0.2 %; Hematocrit 33.9 % (37.0-47.0); Hemoglobin 11.1 g/dL (11.5-15.3); Lymphocytes # 0.6 10^3/uL (0.8-4.8); Lymphocytes % 6.8 %; Mean Corpuscular HGB Conc 32.7 g/dL (30.0-36.0); Mean Corpuscular Hemoglobin 32.1 pg (28.0-34.0); Mean Platelet Volume 11.1 fL (7.4-10.4); Monocytes # 0.2 10^3/uL (0.2-0.9); Monocytes % 2.1 %; Neutrophils # 7.4 10^3/uL (1.8-7.7); Neutrophils % 90.5 %; Nucleated Red Blood Cells % 0 %; Platelet Count 242 10^3/cmm (130-400); Red Blood Count 3.46 10^6/uL (4.1-5.3); Red Cell Distribution Width 12.6 % (12.1-15.1); White Blood Count 8.2 10^3/uL (4.0-10.0)
[2019-06-24 05:46] LABS: Urine Appearance Clear (CLEAR); Urine Color Yellow (Yellow)
[2019-06-24 05:47] LABS: Add Urine Microscopic? YES; Bilirubin Urine Neg (NEGATIVE); Blood Urine Trace (Negative); Glucose Urine UA Trace (Normal); Ketones Urine Negative (Negative); Leukocyte Esterase Urine Negative (Negative); Nitrate Urine Negative (Negative); Protein Urine 3+ (Negative); Specific Gravity, Urine 1.015 (1.005-1.030); Urobilinogen Urine Norm (Negative); pH Urine 5 (5-7)
[2019-06-24 05:48] LABS: RBC Urine 0-4 /hpf (0-2)
[2019-06-24 05:49] LABS: Add Urine Culture? No; Bacteria Urine 1+; Fine Granular Casts Urine 0-4 /lpf; Squamous Epithelial Cell Urine 25-40 (0-5)
[2019-06-24 05:54] LABS: INR 1.17 (0.8-1.2)
[2019-06-24 05:55] LABS: Partial Thromboplastin Time 31.6 SECONDS (23.9-36.7)
[2019-06-24 05:58] LABS: Anion Gap 15.7 (5-19); Blood Urea Nitrogen 18 mg/dL (8-23); Calcium 8.7 mg/dL (8.5-10.5); Carbon Dioxide 20 mmol/L (22-29); Chloride 100 mmol/L (98-107); Glucose 158 mg/dL (65-115); Magnesium 1.4 mg/dL (1.7-2.3); Osmolality Calculated 274 mOsm/kg (285-295); Potassium 3.7 mmol/L (3.5-5.1); Sodium 132 mmol/L (136-145)
[2019-06-24 06:37] LABS: Glucose Point of Care 140 mg/dL (70-110)
[2019-06-24 06:50] LABS: Slide Review Slide Review Perform
[2019-06-24 06:52] LABS: Absolute Segmented Neutrophil 2.9 10/cmm (1.6-7.1); Band Neutrophils Absolute 4.4 10^3/cmm (0.0-1.2); Lymphocytes 9 %; Monocytes Absolute 0.1 10^3/cmm (0.1-0.6); Segmented Neutrophils 36 %; Total Cells Counted 100 (0-100)
[2019-06-24 06:53] LABS: Dohle Bodies Trace; Poikilocytosis Trace; Toxic Granulation 1+; Toxic Vacuolation TRACE
[2019-06-24 06:54] LABS: Platelet Estimate Normal (Normal)
[2019-06-24] MEDS: acetaminophen 325 mg Tablet 650 MG PO (07:34)
[2019-06-24 09:13] LABS: Procalcitonin 13.02 ng/mL (0-0.5)
[2019-06-24 09:23] LABS: C Reactive Protein 421.8 mg/L (0.0-4.9)
[2019-06-24 09:27] LABS: Erythrocyte Sedimentation Rate 71 mm/hr (0-15)
[2019-06-24] MEDS: aspirin 81 mg EC Tablet 162 MG PO (10:10)
[2019-06-24] MEDS: atorvastatin 40 mg Tablet PO (10:11)
[2019-06-24] MEDS: isosorbide mononitrate ER 30 mg Tablet PO (10:11)
[2019-06-24] MEDS: azithromycin 250 mg Tablet PO (10:11)
[2019-06-24] MEDS: lactobacillus 1 Tablet 1 TAB PO ×2 (10:11→18:14)
[2019-06-24] MEDS: metoprolol tartrate 25 mg Tablet 12.5 MG PO (10:12)
[2019-06-24 10:58] LABS: Glucose Point of Care 185 mg/dL (70-110)
--- NOTE | 2019-06-24 12:15 | PC.CHAP ---
Pastoral Care Encounter/Spiritual Assessment Type of Contact [x] Declined retail service lead merchandiser visit [] Patient/Family/Request visit [] Outpatient visit [] Follow-up visit [] Physician referral [] Code/Alert [x] Routine visit [] Staff referral [] Actively dying [] Patient sleeping [] Family support [] [] Out of room [] Palliative care [] [] Receiving care in room [] Pre-surgical visit [] Trauma [] Long length of stay [] ICU visit [] Other: Relational/Emotional Strength [] Patient feels connected with others/family/visitors/staff [] Distress [] Loneliness/isolation [] Abandonment Spirituality of Patient [] Person of Deb [] Attends Taoist of their Deb [] Believes in Prayer [] Reads Bible or Orthodox materials [] There are Spiritual issues to be addressed Print Shop Assistant Interventions [] Prayer [] Active listening [] Non-anxious presence [] Spiritual/emotional support [] Crisis/trauma care [] Spiritual counseling [] Bereavement support [] Provided bereavement packet [] Provided Bible/devotional materials [] Provided toy/stuffed animal, coloring book to patient or family member [] Provided Communion [] Anointing/[place] [] Salvation [] Completed spiritual assessment [] Other: Impact on Illness or Injury [] Angry [] Fearful [] Anxious [] Often cries [] Exhaustion [] Unable to work [] Unable to attend judaism [] Unable to walk/stand [] Unable to read [] Unable to drive [] Unable to eat/drink [] Unable to sleep [] Unable to be with family [] Patient intubated [] Other: Summary Time spent with patient 10 min
[2019-06-24] MEDS: ondansetron 2 mg/ML SDV 2 mL 4 MG IVP ×2 (12:22→18:45)
[2019-06-24] MEDS: morphine 4 mg/mL SDV 1 mL 1 MG IVP (14:04)
--- NOTE | 2019-06-24 15:04 | P.PN_ITS ---
Subjective Subjective: Interval history: Patient states that she had episode of nausea vomiting this morning, her breathing has somewhat improved, no fevers, no chills, no chest pain, but does have a lot of left rib pain in the area that she fell Vitals/I&O/Wt Last Vital Signs Temp 97.3 F L 06/24/19 11:01 Pulse 93 06/24/19 14:53 Resp 18 06/24/19 14:50 BP 138/80 06/24/19 11:01 Pulse Ox 95 06/24/19 14:50 06/24/19 06/24/19 06/24/19 06:59 14:59 22:59 Intake Total 720 / 720 Output Total 200 / 200 350 / 350 Balance -200 / 850 370 / 370 Weight last 48 hrs Weight 41.73 kg Physical Exam Const: COMMON NORMALS: no apparent distress and oriented x3 HENMT: COMMON NORMALS: normocephalic HEAD & SCALP: normocephalic Neck/C-Spine: COMMON NORMALS: no JVD Resp: COMMON NORMALS: normal respiratory effort, no retractions and no use of accessory muscles AUSCULTATION: wheezes Cardio: COMMON NORMALS: no JVD, regular rate, regular rhythm, S1 normal heart sound and S2 normal heart sound RATE: regular rate RHYTHM: regular rhythm HEART SOUNDS: S1 normal and S2 normal GI: COMMON NORMALS: normal to inspection, nondistended, normoactive bowel sounds, soft to palpation, non-tender, no hepatosplenomegaly, no masses and no bruits PALPATION: Yes soft and Yes no hepatosplenomegaly Extremity: COMMON NORMALS: normal capillary refill, no clubbing, cyanosis or edema, no calf tenderness and no pedal edema Neuro: COMMON NORMALS: oriented x3 Psych: COMMON NORMALS: mental status grossly normal Data : 06/24/19 05:10 06/24/19 05:10 Micro: Microbiology 06/24/19 09:59 Bacterial Antigens - Final Urine,Voided 06/23/19 19:50 Blood Culture - Preliminary Blood SPECIMEN COLLECTED 06/23/19 18:05 Blood Culture - Preliminary Blood SPECIMEN COLLECTED A&P Assessment and plan (1) Left lower lobe consolidation: Patient with recent fall and has a wedge-shaped appearing infiltrate on chest x-ray. Potentially could be pulmonary contusion. Not producing much in the way of cough. Will treat as pneumonia. -Procalcitonin 13.02, CRP 421.8 -We will treat for pneumonia, monitor clinical status -Given elevated BNP, and mildly elevated troponins, will do a cardiac echocardiogram Status: Acute Code(s): J18.1 - Lobar pneumonia, unspecified organism (2) Bright red blood per rectum: History of hemorrhoidal bleeding. Passing a bit more blood than she is used to with this. Reports straining a lot with the diarrhea that she is been having. Status: Acute Code(s): K62.5 - Hemorrhage of anus and rectum (3) COPD (chronic obstructive pulmonary disease): Status: Chronic Qualifiers: COPD type: COPD with acute exacerbation Qualified Code(s): J44.1 - Chronic obstructive pulmonary disease with (acute) exacerbation Code(s): J44.9 - Chronic obstructive pulmonary disease, unspecified (4) Chronic kidney disease, stage II (mild): Suspected chronic diagnosis. Likely with acute worsening secondary to diarrhea.. Creatinine had been 1.0 a week ago. Status: Acute Code(s): N18.2 - Chronic kidney disease, stage 2 (mild) (5) DM type 2 causing vascular disease: Dcy-eibczrg-kjlclvkeq Status: Chronic Code(s): E11.59 - Type 2 diabetes mellitus with other circulatory complications (6) CAD (coronary artery disease): We will order cardiac echocardiogram Status: Chronic Qualifiers: Coronary Disease-Associated Artery/Lesion type: [place] artery [place] vs. transplanted heart: [place] heart Associated angina: without angina Qualified Code(s): I25.10 - Atherosclerotic heart disease of [place] coronary artery without angina pectoris Code(s): I25.10 - Atherosclerotic heart disease of [place] coronary artery without angina pectoris (7) HTN (hypertension): Continue home metoprolol and isosorbide Status: Chronic Qualifiers: Hypertension type: essential hypertension Qualified Code(s): I10 - Essential (primary) hypertension Code(s): I10 - Essential (primary) hypertension (8) Hyperlipemia: Status: Chronic Qualifiers: Hyperlipidemia type: pure hypercholesterolemia Qualified Code(s): E78.00 - Pure hypercholesterolemia, unspecified Code(s): E78.5 - Hyperlipidemia, unspecified (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 Status: Acute Code(s): I77.4 - Celiac artery compression syndrome Additional A&P Information Inpatient admission Rocephin and azithromycin Breathing treatments Incentive spirometer given pain with deep inspiration in the left chest area where she fell recently Oxygen therapy, weaning as able Follow-up pending cultures Recommend follow-up chest x-ray to ensure resolution Will order a cardiac echocardiogram given elevated BNP and history of CAD GI prophylaxis We will need some assistance establishing specialist physicians in this area, particularly for peripheral vascular disease SCDs for DVT prophylaxis to the left lower extremity No pharmacological DVT prophylaxis secondary to bright red blood per rectum presently PT evaluation Supportive care otherwise Attestations Medical Necessity Statement*: Patient requires hospitalization, for pneumonia Coding Level of Care Code Acute Medicaid Billing Clerk for Chg Fwd Diagnoses Left lower lobe consolidation J18.1 Bright red blood per rectum K62.5 COPD (chronic obstructive pulmonary disease) J44.1 COPD type: COPD with acute exacerbation Chronic kidney disease, stage II (mild) N18.2 DM type 2 causing vascular disease E11.59 CAD (coronary artery disease) I25.10 Coronary Disease-Associated Artery/Lesion type: [place] artery [place] vs. transplanted heart: [place] heart Associated angina: without angina HTN (hypertension) I10 Hypertension type: essential hypertension Hyperlipemia E78.00 Hyperlipidemia type: pure hypercholesterolemia Celiac artery stenosis I77.4
[2019-06-24 16:25] LABS: Glucose Point of Care 104 mg/dL (70-110)
--- NOTE | 2019-06-24 16:57 | PC.RESP ---
Patient given Pulmonary Rehab/Smoking Cessation information.
[2019-06-24 18:47] LABS: Glucose Point of Care 175 mg/dL (70-110)
--- NOTE | 2019-06-24 19:05 | PC.NURSE ---
THIS NURSE WENT INTO ROOM WHERE THE PT WAS SHAKY AND HAVING ABDOMINAL PAIN, HER TELEMONITOR SHOWED THE PT HEART RATE WAS RUNNING IN 180'S. PT VITALS WERE TAKEN READ 169/89, HEART RATE 108, OXYGEN SATURATION IS 97% AT 2 LITERS OXYGEN VIA NASAL CANNULA, BLOOD SUGAR 175, PT WAS PALE, SWEATY AND CLAMMY SO THIS NURSE HAD WILDER NOVOA NOTIFY PHYSICIAN THIS NURSE STARTED IV IN RIGHT FOREARM. DR SEXTON ORDERED AN EKG, AND FOR RN MARGARITA TO GIVE 5MG METOPROLOL, ALONG WITH ZOFRAN AND HER MORPHINE DUE TO PT STATING SHE IS ALLERGIC TO ATIVAN AND REFUSED TO TAKE THE ATIVAN. ISSAC FROM RESPIRATORY DONE EKG TO FIND PT IN SVT, DR SEXTON ORDERED FOR ANOTHER 5MG OF METOPROLOL TO BE GIVEN AND IF SHE DID NOT CONVERT THEN SHE MAY NEED TO BE MOVED TO CSU. PT CONVERTED AND HEART RATE IS NOW IN THE 80'S.
--- NOTE | 2019-06-24 19:26 | ECG_ITS ---
Measurements Intervals [place] Rate: 140 P: OR: 0 QRS: 15 QRSD: 95 T: 83 QT: 295 QTc: 450 ATRIAL FIBRILLATION WITH RAPID VENTRICULAR RESPONSE NONSPECIFIC ST & T-WAVE ABNORMALITY Compared to ECG 06/24/2019 00:29:59 T-wave abnormality now present Sinus rhythm no longer present Electronically Signed On 06-25-2019 7:48:16 CATALOGUE ILLUSTRATOR by Ashley Latham M.D. [id number]
[2019-06-24] MEDS: metoprolol tartrate 1 mg/1 mL SDV 5 mL 5 MG ×2 (19:36)
[2019-06-24] MEDS: morphine 4 mg/mL SDV 1 mL 2 MG IVP (19:36)
[2019-06-24] MEDS: metoprolol tartrate 50 mg Tablet PO (19:37)
--- NOTE | 2019-06-24 19:54 | PC.NURSE ---
Morphine administration at 1900: Dr. Castro in the room while pt in SVT and c/o abdominal pain. Pt has 1mg of Morphine already ordered, Dr. Castro said to give 2mg. Morphine pulled from pyxis at the time and 3mg wasted. Body And Fender Mechanic Apprentice actually gave 2mg of Morphine and wasted the other 2 with COURTNEY Fabian as witness. After the pt stabilized designer writer entered the medication orders and scanned them.
[2019-06-24 21:19] LABS: Glucose Point of Care 139 mg/dL (70-110)
--- NOTE | 2019-06-24 23:03 | XRR_ITS ---
PROCEDURE INFORMATION: Exam: XR Chest, 1 View Exam date and time: 06/24/2019 11:30 PM Age: 74 years old Clinical indication: Condition or disease; Other: Pneumonia; Dyspnea; Additional info: Mottled low sats pneumonia TECHNIQUE: Imaging protocol: XR of the chest Views: 1 view. COMPARISON: CR XR chest 1V portable [id number] 06/23/2019 6:37 PM FINDINGS: Lungs: Dense consolidation in the peripheral left lung base is slightly smaller and improved. Volume loss in the left lung base with elevation of the left diaphragm. The right lung is clear. Pleural space: Unremarkable. No pleural effusion. No pneumothorax. Heart/Mediastinum: Unremarkable. No cardiomegaly. Bones/joints: Unremarkable. Other findings: Gaseous distention of the stomach. XR/XR chest 1V portable [id number] IMPRESSION: Slightly improved pneumonia versus aspiration in the left lung base.
--- NOTE | 2019-06-24 23:20 | PM.CCN ---
Critical Care Event Note Critical Care Event The high probability of a clinically significant, sudden or life threatening deterioration of the patient's cardiopulmonary systems system(s) required my full and direct attention, intervention and personal management. The critical care time is as shown. This time is in addition to time spent performing any reported procedures but includes the following: x Data and vital sign review and interpretation x Patient assessment, examination and intervention x Documentation x Medication orders and management Called emergently to patient's room due to complaints of abdominal discomfort and mottling all over. On my arrival patient was extremely pale all over and essentially clamped down. She had mottling of her right lower extremity stump extending up into the groin and lower abdomen. She also had some mottling in the left groin but the remainder of her left lower extremity was essentially white. Even the discolorations that were noted to her feet last night were this time white. She had mottling all over her chest and upper extremities. Lips were slightly blue. Nursing staff was unable to get an oxygen saturation. Pulse was in the 90s. Blood pressure was 80 over palp manually. Fluids were wide open. Patient had some wheezing noted on the right and decreased breath sounds on the left but not much unchanged from last evening. Abdomen was distended, generally soft but tender particularly in the upper quadrants and down the left sided quadrants. Bowel sounds were decreased. Stat ABG showed 7.0 10/[birth year]/1983 with a bicarb of 6.2. This was on 6 L by high flow oxygen mask. Stat portable chest x-ray showed persistent left lower lobe infiltrate but also noted this time was an extremely large gastric bubble. KUB was done after this showing fairly extensive gastric distention. Patient's overall appearance improved with fluid bolus. Decision was made to transfer her to the ICU. Stat laboratory studies have been ordered including lactic acid, serial troponins, EKG and repeat electrolytes. I will note that around 6 PM or so, patient had an episode of SVT. She received a total of 10 mg of IV metoprolol. She subsequently received 50 mg of p.o. metoprolol. Pressures about an hour prior to this episode had been high. She had been restless and not wanting to stay in bed, also was a bit more confused appearing. At that time I had gone on and asked nursing staff to give her her evening dose of Benadryl which she takes every night at bedtime early. Differential at this point in time includes an acute cardiovascular event such as heart attack or PE. Patient has known significant vascular disease and she also could have had acute thrombosis in other vessels. CT done yesterday did show celiac artery stenosis and pre-celiac aortic narrowing. Also in the differential is as developing sepsis/septic shock. White count has been normal but she had elevated inflammatory markers. To this point though she had not had significant hypotension. Prior to the episode of SVT she had not had significant tachycardia either. I am going to go on and transfer patient to the ICU given the critical appearance at the present time combined with highly abnormal ABG. I am leaning towards this being a septic event. If she stabilizes will consider CT imaging of the abdomen to evaluate further. I have ordered for NG tube placement. I am a little concerned that that may worsen respiratory status. She may require ventilatory support if were not able to turn this around quickly. I have discussed with the daughter throughout. We will continue close monitoring and follow-up. Critical Care Time Critical Care Time: Code activated: No Critical Care Time (min): 48 Coding Level of Care Code Acute Senior Branch Manager for Ya Asher
--- NOTE | 2019-06-24 23:26 | XRR_ITS ---
PROCEDURE INFORMATION: Exam: XR Abdomen, 1 View Exam date and time: 06/24/2019 11:44 PM Age: 74 years old Clinical indication: Other: Acute distress, very large gastric bubble on cxr; Additional info: Acute distress, very large gastric bubble. On cxr TECHNIQUE: Imaging protocol: XR of the abdomen. Views: Frontal supine view of the abdomen. 1 View. COMPARISON: No relevant prior studies available. FINDINGS: Gastrointestinal tract: Moderate-severe gaseous distention of the stomach. There is scattered gas throughout the colon and nonobstructed small bowel. Gas in the rectum. Intraperitoneal space: No visible pneumoperitoneum. Surgical clips in the right groin. Bones/joints: Unremarkable. XR/XR KUB portable [id number] IMPRESSION: Moderate-severe gaseous distention of the stomach. This could represent gastroparesis or gastric outlet obstruction. NG tube placement should be considered.
[2019-06-24 23:27] LABS: Glucose Point of Care 62 mg/dL (70-110)
[2019-06-24 23:27] LABS: ABG PCO2 22.3 mmHg (35-45); ABG PH Result 7.06 (7.35-7.45); Arterial Blood Gas Hematocrit 31.6 % (37-47); Base Excess ABG -22.5 mmol/L (-2.0-2.0); Blood Gas Allen Test Pos; Blood Gas Sample Site Brachial, left; Blood Gas Sample Type Arterial; HCO3 ABG 6.2 mmol/L (22-26); Oxygen Device OXY MASK; PO2 ABG 84.3 mmHg (80.0-100.0)
--- NOTE | 2019-06-24 23:44 | PC.NURSE ---
MANUAL BP EXTREMELY HARD TO HEAR, I BELIEVE I HEARD A BEAT AT 90/44.
[2019-06-24 23:58] LABS: Troponin(5th) Baseline 214 ng/mL (0-10)
[2019-06-24 23:59] LABS: Lactic Sepsis W/Reflex 12.1 mmol/L (0.5-2.2)
[2019-06-25] VITALS (24 sets, daily range): BP systolic 81–142; BP diastolic 0–87; PULSE 67–174; RESP 15–30; TEMP 35.8; O2SAT 72–92
[2019-06-25 00:14] LABS: INR 1.27 (0.8-1.2)
[2019-06-25] MEDS: sodium bicarbonate 8.4% 1 mEq/mL 50mL Syr 50 MEQ IVP (00:14)
[2019-06-25 00:15] LABS: Partial Thromboplastin Time 38.9 SECONDS (23.9-36.7)
[2019-06-25] MEDS: sodium chloride 0.9% 1,000 ML 999 ML IV (00:15)
[2019-06-25] MEDS: calcium chloride 10% Syr 10 mL 1 GM IVP (00:15)
[2019-06-25 00:16] LABS: Anion Gap 31.7 (5-19); Blood Urea Nitrogen 20 mg/dL (8-23); Calcium 9.7 mg/dL (8.5-10.5); Chloride 99 mmol/L (98-107); Magnesium 2.6 mg/dL (1.7-2.3); Osmolality Calculated 267 mOsm/kg (285-295); Sodium 132 mmol/L (136-145)
[2019-06-25 00:28] LABS: Carbon Dioxide 8 mmol/L (22-29); Glucose 34 mg/dL (65-115); Phosphorus 8.9 mg/dL (2.5-4.5); Potassium 6.7 mmol/L (3.5-5.1)
[2019-06-25 00:41] LABS: Albumin Level 2.9 g/dL (3.5-5.2); Alkaline Phosphatase 148 IU/L (35-105); Globulin 3.2 g/dL (1.3-4.6); Total Bilirubin 0.9 mg/dL (0.15-1.2); Total Protein 6.1 g/dL (6.6-8.7)
[2019-06-25 00:52] LABS: Alanine Aminotransferase 1006 U/L (0-33)
[2019-06-25 00:57] LABS: Aspartate Amino Transferase 1059 U/L (0-32)
--- NOTE | 2019-06-25 01:03 | ECG_ITS ---
Measurements Intervals [place] Rate: 72 P: 149 [place]: 195 QRS: 137 QRSD: 102 T: -8 QT: 425 QTc: 467 SINUS RHYTHM LOW QRS VOLTAGE IN EXTREMITY LEADS [QRS DEFLECTION < 0.5 mV IN LIMB LEADS] LEFT POSTERIOR FASCICULAR BLOCK [QRS AXIS > 109, INFERIOR Q] ABNORMAL QRS-T ANGLE [QRS-T AXIS DIFFERENCE > 60] Compared to ECG 06/24/2019 00:29:59 Low QRS voltage now present Left posterior fascicular block now present Electronically Signed On 06-25-2019 20:34:21 CAPABILITY LEAD by Torey Ziegler M.D. [id number]
--- NOTE | 2019-06-25 01:06 | XRR_ITS ---
PROCEDURE INFORMATION: Exam: XR Chest, 1 View Exam date and time: 06/25/2019 1:18 AM Age: 74 years old Clinical indication: Device placement; Ett placement (vent status); Patient HX: Et, og tube placement; Additional info: Intubation TECHNIQUE: Imaging protocol: XR of the chest Views: 1 view. COMPARISON: CR XR chest 1V portable [id number] 06/24/2019 11:19 PM FINDINGS: Tubes, catheters and devices: There is an ET tube with tip above the felton an orogastric tube with tip in the stomach. Lungs: Increasing left lower lobe airspace opacity and volume loss concerning for pneumonic infiltrate is noted. Pleural space: There is a small left pleural effusion. No pneumothorax. Heart/Mediastinum: Unremarkable. No cardiomegaly. Bones/joints: No acute abnormality. Soft tissues: Prominent skin fold is noted over the right chest. XR/XR chest 1V portable [id number] IMPRESSION: 1. There is an ET tube with tip above the felton an orogastric tube with tip in the stomach. 2. Increasing left lower lobe airspace opacity and volume loss concerning for pneumonic infiltrate is noted.
[2019-06-25] MEDS: etomidate 10 ML 5 MG (01:09)
[2019-06-25] MEDS: succinylcholine 20 mg/mL SDV 10mL 200 MG (01:10)
[2019-06-25] MEDS: midazolam 1 mg/mL INJ 2 mL 2 MG (01:11)
[2019-06-25 01:12] LABS: Reflex Lactate Order REFLEX LACTIC ORDERD
[2019-06-25] MEDS: propofol 1,000 MG/100 ML INJ 2.5 MG IV (01:12)
--- NOTE | 2019-06-25 01:16 | PC.PHAR ---
Pharmacokinetic dosing service Date: 06/25/19 Time: 01:16 Objective: Patient: JOEY KINNEY Floor:ICU-5 Age: 74 yo Serum creatinine: 1.3 mg/dL Height: 60.0 Inches Weight (kg): 41.73 Diagnosis: Relevant medical/social history: Cultures and sensitivities: Other labs: Assessment: IBW (kg): 45.50 Dosing wt(kg): 41.73 Estimated Creatinine clearance (ml/min): 24.3 CRCL method: Cockcroft and Gault using ibw(default). Drug selected: Vancomycin Loading dose (mg): 0 Vd (liters): 37.6 (factor used: 0.9 L/kg) Pacheco (hr-1): 0.025 Half life (hrs): 27.73 Recommended dose: 750 mg Interval: 36 hrs Infusion time (hrs): 2.0 Predicted peak (mcg/mL): 32.8 Predicted trough (mcg/mL): 14.02 Total body weight is being used for vancomycin dosing. Renal function is stable [ ] /unstable [ ] Recommendations: Give Vancomycin 750 mg q 36 hrs with an expected Cpeak of 32.8 mcg/ml and an expected Ctrough of 14.02 mcg/ml Renal dosing of other antibiotics (review renal dosing of other medications and list guidelines here): Thank you for the consult, will continue to follow. Signature: Charlene Frankel [facility]
[2019-06-25] MEDS: dextrose 50% syringe 50 mL (01:23)
--- NOTE | 2019-06-25 01:33 | PC.NURSE ---
005 Pt was not oxygenating well, Dr Yao spoke with family and pt and made decision to intubate. Pt was intubated by Dr Yao, Respiratory at bedside along with nurse. Atomidate and Succs were given along with Fentanyl, documented in at the lip, 7.5 ET tube. NG tube placed by Dr Yao. Verified with xray. Propofol running at 10mcg, along with restraints placed and order placed.
--- NOTE | 2019-06-25 01:35 | CTR_ITS ---
PROCEDURE INFORMATION: Exam: CT Angiography Abdomen and Pelvis With Contrast Exam date and time: 06/25/2019 1:47 AM Age: 74 years old Clinical indication: Other: Septic, mottled abdomen, abd pain TECHNIQUE: Imaging protocol: Computed tomographic angiography of the abdomen and pelvis with intravenous contrast material. 3D rendering: MIP and/or 3D reconstructed images were created by the technologist. Total DLP: 1158.63 mGy-cm Radiation optimization: All CT scans at this facility use at least one of these dose optimization techniques: automated exposure control; mA and/or kV adjustment per patient size (includes targeted exams where dose is matched to clinical indication); or iterative reconstruction. Contrast material: VISI; Contrast volume: 75 ml; Contrast route: 20G; COMPARISON: CT angio chest PE protcl [id number] 2019-06-23 20:34 FINDINGS: Tubes, catheters and devices: A balloon bladder catheter is present. Lungs: Substantial consolidation in the left lower lung, incompletely visualized. Aorta: Extensive aortic atherosclerosis with bulky calcification and soft and calcified plaque. There is a small stent in the distal aorta and extending into the left common iliac. The mid to distal aorta below the renal arteries 3 cm, becomes occluded. Occlusion of the distal aorta, and no flow is seen in the bilateral iliac branches. Celiac trunk and mesenteric arteries: Celiac trunk and SMA appear occluded at their origins. Renal arteries: Mild bilateral renal artery stenosis. Right iliac arteries: No occlusion or significant stenosis. Right femoral/popliteal arteries: Occluded bilateral common femoral arteries. Left iliac arteries: No occlusion or significant stenosis. Liver: Enlarged low attenuating liver, evidence of hepatic steatosis. Gallbladder and bile ducts: Unremarkable. No calcified stones. No ductal dilation. Pancreas: Unremarkable. No mass. No ductal dilation. Spleen: Spleen appears under perfused, no significant flow within the splenic artery is seen. Question chronically infarcted spleen. Adrenals: Unremarkable. No mass. Kidneys and ureters: Small, less than 5 mm, renal hypodensity. Highly likely to be benign and does not require follow-up imaging or biopsy per ACR. Stomach and bowel: Mild colonic diverticulosis without evidence for acute diverticulitis. No definite pneumatosis portal venous gas visualized. Nonspecific bowel gas pattern. Appendix: No evidence of appendicitis. Intraperitoneal space: Unremarkable. No free air. No significant fluid collection. Lymph nodes: Unremarkable. No enlarged lymph nodes. Bladder: Unremarkable. No mass. Reproductive: Clips in the right groin. Abnormal uterus with calcified fibroids, and fluid and endometrial thickening the uterine lumen, recommend follow-up. Bones/joints: Severe lower lumbar spinal stenosis. L5 bilateral spondylolysis with grade 2 L5-S1 anterolisthesis. Severe associated L5-S1 foraminal stenosis. Soft tissues: Unremarkable. CT/CT angio abdomen pelvis [id number] IMPRESSION: 1. Substantial consolidation in the left lower lung, incompletely visualized. 2. Celiac trunk and SMA appear occluded at their origins. 3. There is a small stent in the distal aorta and extending into the left common iliac. The mid to distal aorta below the renal arteries 3 cm, becomes occluded. Occlusion of the distal aorta, and no flow is seen in the bilateral iliac branches. 4. Severe lower lumbar spinal stenosis. 5. Abnormal uterus with calcified fibroids, and fluid and endometrial thickening the uterine lumen, recommend follow-up. 6. Nonspecific bowel gas pattern. 7. Enlarged low attenuating liver, evidence of hepatic steatosis. 8. Spleen appears under perfused, no significant flow within the splenic artery is seen. Question chronically infarcted spleen. 9. L5 bilateral spondylolysis with grade 2 L5-S1 anterolisthesis. Severe associated L5-S1 foraminal stenosis. Radiation Dose CTDIVOL = (mGy): DLP = 1158.63 (mGy-cm)
[2019-06-25 02:05] LABS: Lactic Acid level (Lactate) 14.3 mmol/L (0.5-2.2); Troponin 5 2HR 162.3 ng/mL (0-10)
[2019-06-25 02:05] LABS: ABG PCO2 22.6 mmHg (35-45); Arterial Blood Gas Hematocrit 31.3 % (37-47); Blood Gas Sample Site Brachial, right; Blood Gas Sample Type Arterial; HCO3 ABG 6.5 mmol/L (22-26); Oxygen Device VENT; PO2 ABG 76.4 mmHg (80.0-100.0)
[2019-06-25 02:07] LABS: ABG PH Result 7.07 (7.35-7.45)
[2019-06-25] MEDS: iodixanol 320 mg/mL 100mL Btl IV (02:41)
[2019-06-25] MEDS: vancomycin 750 MG in sodium chloride 0.9% 250 ML 250 MG IV (02:46)
[2019-06-25] MEDS: ipratropium-albuterol 3 mL Neb INHALATION (03:42)
[2019-06-25] MEDS: heparin drip 25,000 UNIT/500 ML PREMIX 12 UNIT (04:00)
[2019-06-25] MEDS: piperacillin-tazobactam 3.375 GM in sodium chloride 0.9% (plus) 50 ML IV (04:21)
--- NOTE | 2019-06-25 04:22 | CTR_ITS ---
PROCEDURE INFORMATION: Exam: CT Head Without Contrast Exam date and time: 06/25/2019 4:23 AM Age: 74 years old Clinical indication: Other: RT blown pupil, possible bleed TECHNIQUE: Imaging protocol: Computed tomography of the head without contrast. Total DLP: 778.41 mGy-cm Radiation optimization: All CT scans at this facility use at least one of these dose optimization techniques: automated exposure control; mA and/or kV adjustment per patient size (includes targeted exams where dose is matched to clinical indication); or iterative reconstruction. COMPARISON: No relevant prior studies available. FINDINGS: Brain: Severe chronic white matter disease. Moderate to severe cerebral volume loss. No midline shift, mass, fluid collection, or evidence of acute hemorrhage. Ventricles: Normal. No ventriculomegaly. Bones/joints: Unremarkable. No acute fracture. Sinuses: Visualized sinuses are unremarkable. No fluid levels. Mastoid air cells: Visualized mastoid air cells are well aerated. Soft tissues: Unremarkable. Vasculature: Dense vasculature from recent contrast administration. CT/CT head wo con* [id number] IMPRESSION: No acute abnormality. Radiation Dose CTDIVOL = (mGy): DLP = 778.41 (mGy-cm)
--- NOTE | 2019-06-25 04:26 | P.PNCC_ITS ---
Critical Care Event Note Critical Care Event This note is in regards to continued critical care on Mrs. Alvarado. CT of the abdomen and pelvis is come back now. It shows substantial consolidation in the left lower lung. Also noted was that the celiac trunk and SMA were occluded. It was reported there was a small stent in the distal aorta that extended into the left common iliac. The mid to distal aorta below the renal arteries becomes occluded. There is mention of no flow seen in the bilateral iliac branches. Bowel gas pattern was mentioned is being nonspecific. In particular it actually says that there is no free air, no significant fluid collection, no evidence for acute diverticulitis and no definite pneumatosis or portal venous gas visualized. Spleen was noted to be underperfused. Other findings as noted in the report. Patient has continued to have varying degrees of discoloration in the lower abdominal and groin area. That which have been seen on the lower extremities previously is gone now. It almost looks like livedo reticularis. Patient's color otherwise continues to be improved from what it was earlier. After reviewing the CAT scan I have made the decision to start her on a heparin drip. This was initiated in a short time later patient was noted to have a blown right pupil. I had looked at her earlier and this was not noted at that time. Heparin drip has been stopped and a stat CT of the head without contrast has been ordered. Additionally I have requested the records from [facility] at least to see if we can get a copy of the last CTA or CT with IV contrast that she had of the abdomen and pelvis to know if the abnormalities here are chronic versus acute. Current additional critical care 22 minutes for a total of 110 minutes of critical care thus far. Critical Care Time Critical Care Time: Code activated: No Critical Care Time (min): 22 Coding Level of Care Code Acute Lay Out Drafter for Ya Asher
--- NOTE | 2019-06-25 05:02 | XRR_ITS ---
PROCEDURE INFORMATION: Exam: XR Chest, 1 View Exam date and time: 06/25/2019 5:03 AM Age: 74 years old Clinical indication: Device placement; Ett placement (vent status); Additional info: Post intubation TECHNIQUE: Imaging protocol: XR of the chest Views: 1 view. COMPARISON: CR XR chest 1V portable [id number] 2019-06-25 01:01 FINDINGS: Tubes, catheters and devices: Endotracheal tube tip in mid trachea. Gastric tube removed. Lungs: Increased left lower lung consolidation. COPD. Pleural space: Unremarkable. No pleural effusion. No pneumothorax. Heart/Mediastinum: Unremarkable. No cardiomegaly. Bones/joints: Unremarkable. Other findings: Gastric distension. XR/XR chest 1V portable [id number] IMPRESSION: 1. Endotracheal tube tip in mid trachea. 2. Increased left lower lung consolidation.
--- NOTE | 2019-06-25 05:03 | ECG_ITS ---
Measurements Intervals [place] Rate: 93 P: 55 TN: 207 QRS: 53 QRSD: 116 T: 22 QT: 368 QTc: 459 SINUS RHYTHM LOW QRS VOLTAGE IN EXTREMITY LEADS [QRS DEFLECTION < 0.5 mV IN LIMB LEADS] MODERATE INTRAVENTRICULAR CONDUCTION DELAY [110+ ms QRS DURATION] Compared to ECG 06/24/2019 00:29:59 Low QRS voltage now present Intraventricular conduction delay now present Electronically Signed On 06-25-2019 20:33:37 SPEEDBOAT DRIVER by Torey Ziegler M.D. [email or web address]
--- NOTE | 2019-06-25 05:27 | PC.NURSE ---
BLOOD PRESSURE SYSTOLIC NUMBER DOPPLED WITH MANUAL CUFF. NO PULSE OX IS READING. DOCTOR IS AWARE OF PT STATUS.
[2019-06-25 06:04] LABS: Basophils # 0.1 10^3/uL (0.0-0.1); Basophils % 0.9 %; Hemoglobin 13.7 g/dL (11.5-15.3); Lymphocytes # 0.5 10^3/uL (0.8-4.8); Lymphocytes % 4.2 %; Mean Corpuscular Hemoglobin 32.4 pg (28.0-34.0); Mean Corpuscular Volume 115.8 fL (81-99); Mean Platelet Volume 10.8 fL (7.4-10.4); Monocytes # 0.6 10^3/uL (0.2-0.9); Monocytes % 4.9 %; Neutrophils # 10.6 10^3/uL (1.8-7.7); Neutrophils % 88.9 %; Nucleated Red Blood Cells % 0 %; Platelet Count 77 10^3/cmm (130-400); Positive M 1; Red Blood Count 4.23 10^6/uL (4.1-5.3); Red Cell Distribution Width 13.1 % (12.1-15.1); White Blood Count 11.9 10^3/uL (4.0-10.0)
--- NOTE | 2019-06-25 06:21 | PC.NURSE ---
SHIFT SUMMARY IS INTUBATED. PT IS NON RESPONSIVE TO STIMULATION. PT PEDAL PULSE IS ABSENT. PT BLOOD PRESSURE IS ONLY ABLE TO BE GOTTEN BY DOPPLER AND KRISTINA CUFF, SYSTOLIC NUMBER ONLY. ANY OTHER NOTES, SEE DR DICTATION.
[2019-06-25 06:27] LABS: Arterial Blood Gas Hematocrit 29.5 % (37-47); Base Excess ABG -24.9 mmol/L (-2.0-2.0); Blood Gas Sample Site Brachial, left; Blood Gas Sample Type Arterial; HCO3 ABG 4.7 mmol/L (22-26); Oxygen Device VENT; PO2 ABG 93.8 mmHg (80.0-100.0)
[2019-06-25 06:29] LABS: Albumin Level 2.6 g/dL (3.5-5.2); Alkaline Phosphatase 203 IU/L (35-105); Anion Gap 35.5 (5-19); Blood Urea Nitrogen 19 mg/dL (8-23); Calcium 10.4 mg/dL (8.5-10.5); Chloride 103 mmol/L (98-107); Globulin 3.4 g/dL (1.3-4.6); Glucose 146 mg/dL (65-115); Magnesium 2.9 mg/dL (1.7-2.3); Sodium 135 mmol/L (136-145); Total Bilirubin 1.1 mg/dL (0.15-1.2)
[2019-06-25 06:30] LABS: ABG PCO2 19.1 mmHg (35-45)
--- NOTE | 2019-06-25 06:40 | PC.NURSE ---
DR ALANIS AT BEDSIDE, TALKING TO FAMILY.
[2019-06-25 06:41] LABS: Slide Review Slide Review Perform
[2019-06-25 06:44] LABS: Alanine Aminotransferase 6284 U/L (0-33)
[2019-06-25 07:06] LABS: Aspartate Amino Transferase 8514 U/L (0-32); Carbon Dioxide 5 mmol/L (22-29); Lactic Acid level (Lactate) 18.6 mmol/L (0.5-2.2); Phosphorus 11.2 mg/dL (2.5-4.5); Potassium 8.5 mmol/L (3.5-5.1)
[2019-06-25 07:18] LABS: Troponin 5 6HR 235 ng/mL (0-10)
[2019-06-25 07:19] LABS: Troponin 5 6HR Delta 21 ng/L (0-12)
--- NOTE | 2019-06-25 07:45 | PC.NURSE ---
Patient's BP is 60/doppler. I contacted patient's Lorraine nugent to ask her and patient's daughter to return to bedside.
--- NOTE | 2019-06-25 07:45 | PC.NURSE ---
Addendum entered by Jessica Krishnan RN 06/25/19 09:39: Daughter's name is incorrect in the note. The correct name is Jose Fish Original Note: Dr. Castro notified of patient's drop in BP and difficutly in obtaing BP with doppler. Also notified hime that patient's daughter Milagro states they want to move to comfort care and that the famly requests removal of ventilator.
[2019-06-25] MEDS: morphine 4 mg/mL SDV 1 mL 1 MG IVP (08:32)
--- NOTE | 2019-06-25 08:45 | PC.NURSE ---
Patient's daughter and grand daughter at bedside. They are contacting family by phone. Dr. Castro and RT at bedside to extubate patient at the family's request.
--- NOTE | 2019-06-25 09:00 | PC.NURSE ---
Patient is in PEA. No palpable pulse. No heart beat auscultated. Patient ellen DNR.
--- NOTE | 2019-06-25 09:10 | PC.NURSE ---
Patient . There is no breaths, no heartbeat can be auscultated. Dr. Castro notified.
--- NOTE | 2019-06-25 09:25 | PC.NURSE ---
[facility] transplant notified of patient's .
--- NOTE | 2019-06-25 09:30 | PC.NURSE ---
[facility] in [facility] notified that family has requested their services.
--- NOTE | 2019-06-25 09:45 | PC.NURSE ---
[facility] and [facility] have both declined patient for donation.
[2019-06-26 07:31] LABS: Glucose Point of Care 301 mg/dL (70-110)
--- NOTE | 2019-07-12 15:48 | P.DES_ITS ---
Discharge Providers DDS Date of Admission: 06/23/19 21:55 Date Summary Completed: 07/12/19 Attending Provider at Admission: Johanna Yao MD Time of : 20:10 Attending Provider at Discharge: George Castro MD DS Diagnoses Hospital Diagnoses (1) Left lower lobe consolidation: (2) Bright red blood per rectum: (3) COPD (chronic obstructive pulmonary disease): Qualifiers: COPD type: COPD with acute exacerbation Qualified Code(s): J44.1 - Chronic obstructive pulmonary disease with (acute) exacerbation (4) Chronic kidney disease, stage II (mild): Problem details: Has followed with a police detention attendant since developed micro-proteinuria (5) DM type 2 causing vascular disease: (6) CAD (coronary artery disease): Problem details: 2 RCA stents Qualifiers: Coronary Disease-Associated Artery/Lesion type: [place] artery [place] vs. 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 Patient was seen in primary care physician's office, found to have significant hypoxia on room air, and was ill-appearing, so was sent to [facility] for evaluation. Patient was admitted for left lower lobe pneumonia, received IV antibiotics, IV fluids and generally had improved until the night of June 25, 2019. When patient was found to have significant abdominal discomfort with mottling all over her lower extremities and abdomen, she was felt to be clamped down. In addition she was found to have acute hypoxic respiratory failure, requiring high flow 6 L oxygen. Patient was emergently transferred down to the intensive care unit, she was intubated, sedated, placed on pressure support, received broad- spectrum antibiotics, IV fluids, bicarb drip. The differential at this point was a septic event and or a cardiovascular event. Further work-up showed acute metabolic acidosis, acute respiratory failure. CT scan of abdomen and pelvis showed substantial consolidation of the left lower lung, celiac trunk and SMA appear to be occluded, there is a small stent in the distal aorta and extending into the left common iliac, the mid to distal aorta below the renal arteries 3 cm becomes occluded, occlusion of the distal aorta, no flow was seen in the bilateral iliac branches, spleen appears to be underperfused, no significant flow within the splenic artery seen, question chronically infarcted spleen. Thus patient's mottled bilateral lower extremities, mottled appearance of lower abdomen and groin area were likely secondary to arterial occlusion of large vessels. Patient was started on anticoagulation, heparin drip. But sub sequently, patient was noted to have a blown right pupil, heparin drip was stopped, and CT of the head without contrast showed no acute abnormalities. Anticoagulation was resumed, repeat ABG showed severe metabolic acidosis, repeat blood work showed severe hyperkalemia potassium 8.5, with evidence of multiorgan failure, creatinine 1.2, lactic acid 18.6, elevated troponins with a delta of 21, pro-Kris of 13. Patient was taken off sedation, and had no significant responses, had no pupil responses, had agonal breathing, did not withdraw from pain, no coughing response. Unfortunately patient had a poor prognosis, and unlikely to have a meaningful recovery. Likely patient had developed disseminated intravascular coagulation from sepsis, pneumonia, has formed blood clots in the arterial system as a consequence, and or could have a component of superior mesenteric artery syndrome.According to previous discussions with the patient on admission, she did not want invasive interventions if there was no significant chance of meaningful recovery. Patient's family did not want aggressive interventions. After discussion with the family, family decided to withdraw medical care, patient was made DNR, allow natural , agreed to start comfort care measures, all risks and benefits discussed, all questions answered, patient's family agreed to proceed. Patient was terminally extubated, medical interventions were stopped, patient 06/25/2019 at 9:10 AM. Additional Data: Advance directives?: No Discharge Plan Discharge Patient Disposition: At Medical Facility Condition: Stable Prescriptions: No Action atorvastatin 40 mg tablet 40 mg PO DAILY RF: 0 metformin 500 mg tablet 500 mg PO BID RF: 0 amlodipine 10 mg tablet 10 mg PO DAILY RF: 0 metoprolol tartrate 25 mg tablet 25 mg PO .COMPLEX Qty: 270 RF: 1 isosorbide mononitrate 30 mg tablet extended release 24 hr 30 mg PO DAILY Qty: 90 RF: 1 lisinopril 20 mg tablet 20 mg PO BID Qty: 180 RF: 1 (DME) FreeStyle Lite Strips Strip See Rx Instructions .ROUTE .MEDSUPPLY Qty: 100 RF: 4 Tylenol 325 mg Tablet 325 mg PO QID PRN (Reason: Pain) RF: 0 Sleep Aid (diphenhydramine) 50 mg Capsule 50 mg PO BEDTIME RF: 0 Imodium A-D 2 mg Tablet 2 mg PO Q4H PRN (Reason: dirrhea) RF: 0 Aspir-81 81 mg Tablet,Delayed Release (Dr/Ec) 162 mg PO DAILY RF: 0 Ventolin HFA 90 mcg/actuation Hfa Aerosol Inhaler 2 puff INHALATION QID PRN (Reason: Shortness Of Breath) RF: 0 Vitamin D3 25 mcg (1,000 unit) Tablet 25 mcg PO DAILY RF: 0 Discharge Date/Time: 06/25/19 15:41 DS Attestations Time Spent in /Discharge Care*: greater than 30 min Quality - AMI: AMI present?: No Quality - Stroke: CVA present?: No Quality - VTE: VTE present?: No Coding Level of Care Code Acute Behavior Therapist for g Fwd Diagnoses Left lower lobe consolidation J18.1 Bright red blood per rectum K62.5 COPD (chronic obstructive pulmonary disease) J44.1 COPD type: COPD with acute exacerbation Chronic kidney disease, stage II (mild) N18.2 DM type 2 causing vascular disease E11.59 CAD (coronary artery disease) I25.10 Coronary Disease-Associated Artery/Lesion type: [place] artery [place] vs. transplanted heart: [place] heart Associated angina: without angina HTN (hypertension) I10 Hypertension type: essential hypertension Hyperlipemia E78.00 Hyperlipidemia type: pure hypercholesterolemia Celiac artery stenosis I77.4
== END 2019-06-25 15:41 | disposition expired | DRG 208 ==
LOC: ER 20:06 → MEDSURG 22:44 → ICU 06-24 23:26
PROVIDERS: Family Medicine; Admitting Provider Hospitalist; Emergency Provider Emergency Medicine; Visit Provider Family Medicine
DX: J18.9 Pneumonia, unspecified organism (principal); D65 Disseminated intravascular coagulation [defibrination syndrome]; I21.4 Non-ST elevation (NSTEMI) myocardial infarction; A41.9 Sepsis, unspecified organism; J96.01 Acute respiratory failure with hypoxia; J44.0 Chronic obstructive pulmonary disease with (acute) lower respiratory infection; K62.5 Hemorrhage of anus and rectum; J44.1 Chronic obstructive pulmonary disease with (acute) exacerbation; I77.4 Celiac artery compression syndrome; N18.2 Chronic kidney disease, stage 2 (mild); I13.10 Hypertensive heart and chronic kidney disease without heart failure, with stage 1 through stage 4 chronic kidney disease, or unspecified chronic kidney disease; E11.9 Type 2 diabetes mellitus without complications; I25.10 Atherosclerotic heart disease of native coronary artery without angina pectoris; E78.5 Hyperlipidemia, unspecified; E78.00 Pure hypercholesterolemia, unspecified; F17.210 Nicotine dependence, cigarettes, uncomplicated; Z66 Do not resuscitate; Z79.82 Long term (current) use of aspirin; Z79.52 Long term (current) use of systemic steroids; Z79.811 Long term (current) use of aromatase inhibitors; Z79.84 Long term (current) use of oral hypoglycemic drugs
CPT/HCPCS: 12345; 36415; 36416; 36600; 51702; 70450; 71045; 71275; 74018; 74174; 80048; 80051; 80053; 80076; 81001; 82803; 82810; 82962; 83605; 83690; 83735; 83880; 83986; 84100; 84145; 84484; 85007; 85025; 85610; 85651; 85730; 86140; 86403; 87040; 87804; 93005; 94002; 94640; 94799; 96372; 96375; 97161; 99284; J0330; J0696; J1644; J1815; J2250; J2270; J2405; J2543; J2704; J3370; J3490; J7030; J7050; Q0144; Q0163; Q9967